=== PATIENT | male | born 1975 | race African-American/Black ===

== ENCOUNTER 2017-02-03 10:15 | Emergency (ER) | payer OTHER ==
[~2017-02-03] VITALS: Ht 188 cm; Wt 159.0 kg
[2017-02-03 11:48] LABS: CLARITY URINE CLEAR (CLEAR); COLOR URINE YELLOW (YELLOW); GLUCOSE URINE NEGATIVE (NEGATIVE); KETONES URINE NEGATIVE (NEGATIVE); LEUKOCYTE ESTERASE URINE NEGATIVE (NEGATIVE); NITRITE URINE NEGATIVE (NEGATIVE); OCCULT BLOOD URINE NEGATIVE (NEGATIVE); PH URINE 7.5 (4.5-8.0); PROTEIN URINE 1+ (NEGATIVE); SPECIFIC GRAVITY URINE 1.024 (1.005-1.030)
[2017-02-03] MEDS ORDERED: KETOROLAC 60MG/2ML VIAL IM ONE (12:15)
[2017-02-03] MEDS ORDERED: LIDOCAINE HCL 1% 20ML VIAL (Pyxis) INJ INFIL ONE (12:15)
[2017-02-03] MEDS ORDERED: CEFTRIAXONE SODIUM 250 MG/VIAL IM ONE (12:15)
[2017-02-03] MEDS ORDERED: AZITHROMYCIN 500 MG TABLET PO SCH (12:45)
[2017-02-03 13:11] VITALS: BP 155/74
== END 2017-02-03 14:31 | disposition home or self-care (01) ==
LOC: ER 11:06
DX: N50.812 Left testicular pain (principal); R30.0 Dysuria; R36.9 Urethral discharge, unspecified; Z88.5 Allergy status to narcotic agent; Z88.6 Allergy status to analgesic agent
CPT/HCPCS: 76870; 81001; 93976; 96372; 99285; J0696; J1885; J3490; Z7610